=== PATIENT | male | born 1990 | race Caucasian/White ===

== ENCOUNTER 2019-07-17 16:15 | Emergency (ER) | payer OTHER, SELFPAY ==
[2019-07-17] VITALS (14 sets, daily range): BP systolic 121–134; BP diastolic 72–81; PULSE 68–100; RESP 9–16; TEMP 36.7; O2SAT 98–100
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
[2019-07-17] MEDS: Lactated Ringers 1,000 ML 1000 ML IV (16:35)
[2019-07-17] MEDS: HYDROmorphone 2 MG/ML VIAL 0.5 MG IVP ×2 (16:37→18:10)
[2019-07-17 16:56] LABS: Abs Immature Grans 0.13 k/cumm (0.0-0.09); Absolute Eosinophil Count 0.08 k/cumm (0.0-0.7); Absolute Lymphocyte Count 2.89 k/cumm (1.2-3.4); Absolute Monocyte Count 1.23 k/cumm (0.11-0.7); Basophils % 0.2; Eosinophils % 0.3; HCT 39.3 % (40.0-50.0); HGB 13.2 g/dL (13.5-17.5); Immature Grans % 0.5; Lymphocytes % 11.1; Mean Corp. HGB Concentration 33.6 g/dL (32.0-36.0); Mean Corpuscular Hemoglobin 29.3 pg (27.0-33.0); Mean Corpuscular Volume 87.3 fL (80-95); Mean Platelet Volume 9.1 fL (8.0-11.0); Monocytes % 4.7; Neutrophils % 83.2; Platelet Count 353 x1000/uL (130-400); RBC Distribution Width 13.5 % (11.8-14.1)
[2019-07-17 17:09] LABS: ALT 39 U/L (16-63); AST 36 U/L (15-37); Albumin 3.7 g/dL (3.4-5.0); Alkaline Phosphatase 54 U/L (46-116); Anion Gap 10.2 mmol/L (3-11); BUN 12 mg/dL (7-18); Bilirubin, Total 0.3 mg/dL (0.2-1.0); CO2 25.8 mmol/L (21.0-32.0); CREATININE 1.23 mg/dL (0.70-1.30); Calcium 8.8 mg/dL (8.5-10.1); Chloride 103 mmol/L (98-107); Glucose 105 mg/dL (70-100); Potassium 3.4 mmol/L (3.5-5.1); Sodium 139 mmol/L (136-145); Total Protein 6.6 g/dL (6.4-8.2)
[2019-07-17 17:12] LABS: Absolute Basophil Count 0.05 k/cumm (0.0-0.2); Absolute Neutrophil Count 21.69 k/cumm (1.2-6.7); White Blood Cell Count 26.07 k/cumm (4.4-10.8)
[2019-07-17 17:13] LABS: Diff Comment Agrees w/ Instrument; RBC Morphology Normal
[2019-07-17 17:14] LABS: ETHANOL BLOOD < 3.0 mg/dL (<3); Troponin I < 0.05 ng/mL (0.00-0.06)
[2019-07-17] MEDS: Omnipaque 350 MG/ML 100 ML BTL IJ (17:24)
--- NOTE | 2019-07-17 17:25 | DI.CT_ITS ---
EXAM: CT CHEST/ABD/PEL W CLINICAL HISTORY: Fall, R trauma. R posterior chest/ lower anterior. TECHNIQUE: The examination was conducted according to the usual protocol with an intravenous adminis tration of 100 cc of Omnipaque 350. COMPARISON: No exams were available for comparison FINDINGS: CHEST: 1. There is no evidence of a pneumothorax or pleural effusion. The mediastinum appears within normal limits. Minimal bibasilar atelectasis is demonstrated. The bony structures appear intact. ABDOMEN AND PELVIS: 2. CT evaluation of the abdomen and pelvis reveals no abnormality involving the liver, spleen, and ki dneys. There is no evidence of an abdominal fluid collection. There is no evidence of free air in t he intraperitoneal space. The bony structures are unremarkable. IMPRESSION: No evidence of significant abdominal or pelvic trauma.
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
--- NOTE | 2019-07-17 17:31 | DI.VRAD_ITS ---
PROCEDURE INFORMATION: Exam: CT Chest With Contrast Exam date and time: 07/17/2019 5:07 PM Clinical history: 28 years old, male; Other: Fall, right trauma, right posterior chest, lower anterior TECHNIQUE: Imaging protocol: Computed tomography of the chest with intravenous contrast. Radiation optimization: All CT scans at this facility use at least one of these dose optimization techniques: automated exposure control; mA and/or kV adjustment per patient size (includes targeted exams where dose is matched to clinical indication); or iterative reconstruction. Contrast material: OMNIPAQUE 350; Contrast volume: 100 ml; Contrast route: IV; COMPARISON: No relevant prior studies available. FINDINGS: Mediastinum within normal limits. No evidence of pneumothorax. Minimal basilar atelectasis. Bony structures appear intact. IMPRESSION: No evidence of significant thoracic trauma. PROCEDURE INFORMATION: Exam: CT Abdomen and Pelvis With Contrast Exam date and time: 07/17/2019 5:07 PM Clinical history: 28 years old, male; Other: Fall, right trauma, right posterior chest, lower anterior TECHNIQUE: Imaging protocol: Computed tomography of the abdomen and pelvis with intravenous contrast. Radiation optimization: All CT scans at this facility use at least one of these dose optimization techniques: automated exposure control; mA and/or kV adjustment per patient size (includes targeted exams where dose is matched to clinical indication); or iterative reconstruction. Contrast material: OMNIPAQUE 350; Contrast volume: 100 ml; Contrast route: IV; COMPARISON: No relevant prior studies available. FINDINGS: The liver, spleen, and kidneys intact. No abnormal fluid collections. No extraluminal air. Bony structures intact. IMPRESSION: No evidence of significant abdominal or pelvic trauma. Dictated and Authenticated by: Woody Dominguez MD. Ordering:ASH Gray MD
--- NOTE | 2019-07-17 17:59 | DI.VRAD_ITS ---
PROCEDURE INFORMATION: Exam: XR Right Shoulder Exam date and time: 07/17/2019 5:38 PM Clinical history: 28 years old, male; Other: Fall, posterior pain TECHNIQUE: Imaging protocol: XR Right shoulder. Views: 2 or more views. COMPARISON: No relevant prior studies available. FINDINGS: Suggestion of elevation of the distal clavicle with respect to the acromion and some slight widening of the coracoclavicular space most in keeping with a grade 3 a.c. joint separation. No acute fracture. Soft tissues unremarkable. IMPRESSION: A.C. joint separation as outlined above. Dictated and Authenticated by: Woody Dominguez MD. Ordering:ASH Gray MD
--- NOTE | 2019-07-17 18:05 | DI.RAD_ITS ---
EXAM: XR SHOULDER RT COMPLETE 2+V INDICATION: fall, posterior pain. TECHNIQUE: 2D digital imaging was performed. FINDINGS: There is a grade 2-3 AC separation. No acute fracture is seen. The soft tissues are unremarkable.
[2019-07-17] MEDS: Ketorolac 30 MG/ML VIAL IVP (18:10)
[2019-07-17 18:31] LABS: Bilirubin Negative (Negative); Blood Negative (Negative); Clarity Clear (Clear); Glucose Negative (Negative); Ketones Negative (Negative); Leukocyte Esterase Negative (Negative); Nitrite Negative (Negative); Urobilinogen 0.2 EU/dL (Up TO 0.2)
[2019-07-17 18:38] LABS: Bacteria Rare HPF (Negative); C & S Indicated? No; Casts Negative LPF (Negative); Crystals Negative HPF (Negative); Epithelial Cells Negative HPF (Negative); Mucus Trace (Negative); Other Cells Negative (Negative); RBC Negative (0-2); WBC Negative HPF (0-5)
[2019-07-17] MEDS: HYDROcodone 5/Acetaminophen 325 TAB PO (19:05)
== END 2019-07-17 18:55 | disposition home or self-care (01) ==
PROVIDERS: Emergency Provider Emergency Medicine; PCP Physician Assistant Medical
DX: S43.121A Dislocation of right acromioclavicular joint, 100%-200% displacement, initial encounter (principal); S20.411A Abrasion of right back wall of thorax, initial encounter; V17.0XXA Pedal cycle driver injured in collision with fixed or stationary object in nontraffic accident, initial encounter
CPT/HCPCS: 36415; 74177; 80053; 96361; 96374; 96375; 96376; 99285; 70450; 71260; 72125; 73030; 80320; 81003; 81015; 83735; 84484; 85025; 99284; J1885; J3490; L3650